=== PATIENT | female | born 1960 | race Caucasian/White ===

== ENCOUNTER 2017-09-28 11:51 | Day surgery (SDC) | END 2017-09-29 17:49 | disposition home or self-care (01) ==

== ENCOUNTER 2018-08-02 10:45 | Day surgery (SDC) | payer OTHER ==
[~2018-08-02] VITALS: Ht 157.5 cm; Wt 53.4 kg
[2018-08-02 11:52] VITALS: Ht 157.5 cm; Wt 53.4 kg
[2018-08-02] MEDS ORDERED: VIT D (12:31)
[2018-08-02] MEDS ORDERED: PANTOPRAZOLE (12:31)
[2018-08-02] MEDS ORDERED: RA COL-RITE (12:31)
[2018-08-02] MEDS ORDERED: VIT A (12:31)
[2018-08-02] MEDS ORDERED: PROBIOTIC (12:31)
[2018-08-02] MEDS ORDERED: B COMPLETE (12:31)
[2018-08-02 12:48] VITALS: BP 111/68; PULSE 67; RESP 20
[2018-08-02] MEDS ORDERED: PROPOFOL 200 MG INJ ONE (14:00)
[2018-08-02] MEDS ORDERED: LIDOCAINE 4% SOLUTION 50 ML BTL ONE (14:07)
[2018-08-02] MEDS ORDERED: FENTAnyl 50 MCG/ML VIAL ONE (14:07)
[2018-08-02] MEDS ORDERED: LIDOCAINE 2% (SDV) 5 ML INJ ONE (14:07)
[2018-08-02] MEDS ORDERED: MIDAZOLAM 1 MG/ML 2 ML INJ ONE (14:07)
[2018-08-02] MEDS ORDERED: ETOMIDATE 20 MG INJ ONE (14:08)
--- NOTE | 2018-08-02 14:14 | PREAC ---
Date/Time of Note Date/Time of Note DATE: 08/02/18 TIME: 14:13 Anesthesia Eval and Record Evaluation Time Pre-Procedure Interview DATE: 08/02/18 TIME: 14:13 Age 58 Sex female NPO: 8 hrs Preoperative diagnosis dysphagia screening Planned procedure egd and colonoscopy Past Medical History Past Medical History: None Surgery & Anesthesia Issues No known issue Meds Anticoagulation: No Beta Naina within 24 hr: No Reason Beta Naina not given: Pt. not on B-Naina Reported Medications [Probiotic] No Conflict Check 08/02/18 [Vit A] No Conflict Check 08/02/18 [B Complete] No Conflict Check 08/02/18 [Vit D] No Conflict Check 08/02/18 [Ra Col-Rite] No Conflict Check 08/02/18 [Pantoprazole] No Conflict Check 08/02/18 Meds reviewed: Yes Allergies Coded Allergies: No Known Allergy (Unverified , 08/02/18) Allergies Reviewed: Yes Labs/Studies Labs Reviewed: Reviewed by anesthesiologist test: N/A Pre-procedure Exam Last vitals Vital Signs Date Temp Pulse Resp B/P (MAP) Pulse Ox O2 O2 Flow FiO2 Time Delivery Rate 08/02/18 97.0 67 20 111/68 98 Room Air 12:48 (82) Nasal Cannula Airway: Adequate mouth opening, Adequate thyromental dist Mallampati: Mallampati II Teeth: Normal Lung: Normal Heart: Normal ASA Physical Status ASA physical status: 1 Emergency: None Pre-operative Attestations Prior to commencing anesthesia and surgery, the patient was re-evaluated, there was verification of: *The patient's identity *The results of appropriate recent lab work and preoperative vital signs *The above evaluation not changing prior to induction *Anesthetic plan, risk benefits, alternative and complications discussed with patient/family; questions answered; patient/family understands, accepts and wishes to proceed. JEZ JONES DO Aug 02, 2018 14:14
--- NOTE | 2018-08-02 14:33 | PAC ---
Date/Time of Note Date/Time of Note DATE: 08/02/18 TIME: 14:32 Post-Anesthesia Notes Post-Anesthesia Note Last documented vital signs Vital Signs Date Temp Pulse Resp B/P (MAP) Pulse Ox O2 O2 Flow FiO2 Time Delivery Rate 08/02/18 98 80 20 110/60 98 Room Air 1430 Nasal Cannula Activity: WNL Respiratory function: WNL Cardiovascular function: WNL Mental status: Baseline Pain reasonably controlled: Yes Hydration appropriate: Yes Nausea/Vomiting absent: Yes JEZ JONES DO Aug 02, 2018 14:33
[2018-08-02 14:56] VITALS: BP 114/65; PULSE 69; RESP 18
== END 2018-08-02 15:47 | disposition home or self-care (01) ==
LOC: GIL 10:45
PROVIDERS: ATTEND Internal Medicine Gastroenterology
DX: Z12.11 Encounter for screening for malignant neoplasm of colon (principal); K29.50 Unspecified chronic gastritis without bleeding; B96.81 Helicobacter pylori [H. pylori] as the cause of diseases classified elsewhere; K64.8 Other hemorrhoids
CPT/HCPCS: 43239; 45378; 88305; 88312; J2250; J3010